=== PATIENT | male | born 1940 | race Hispanic/Latino ===

== ENCOUNTER 2019-02-05 12:36 | Inpatient (IN) | payer MEDICARE ==
[2019-02-05] MEDS ORDERED: HEPARIN 10,000 UNITS/10 ML IV ONE (12:43)
--- NOTE | 2019-02-05 12:51 | Emergency Department Report ---
ED Chest Pain HPI - General Stated Complaint: CHEST PAIN Time Seen by Provider: 02/05/19 12:42 - History of Present Illness Initial Comments: Patient is 78 years old male with no significant past medical history. Patient brought to the emergency room from from his primary care office for chest pain started one week ago but while patient in his primary care physician office his chest pain increased significantly with significant sweating. Patient received aspirin and nitroglycerin by EMS. Patient stated that his chest pain is down to 7 out of 10. EKG showed anterior lateral STEMI. STEMI protocol initiated in the ER. I discussed the patient is Dr. Cavazos. Patient received heparin. Patient immediately transferred to cardiac cath. MD Complaint: chest pain -: minutes(s) Pain Location: left chest Severity: severe Severity scale (0 -10): 10 Quality: heaviness Consistency: constant Improves With: nothing Worsens With: nothing - Related Data Allergies Allergy/AdvReac Type Severity Reaction Status Date / Time No Known Allergies Allergy Unverified 07/21/15 11:59 Heart Score - HEART Score History: Highly suspicious EKG: Significant ST-depression Age: > 65 Risk factors: 1-2 risk factors Troponin: < normal limit HEART Score: 7 - Critical Actions Critical Actions: >7 pts:50-65% risk of adverse cardiac event. Early invasive measures ED Review of Systems ROS: Stated complaint: CHEST PAIN Other details as noted in HPI Comment: All other systems reviewed and negative Constitutional: denies: chills, fever Respiratory: denies: cough, orthopnea, shortness of breath, SOB with exertion, SOB at rest, wheezing Cardiovascular: chest pain. denies: palpitations Gastrointestinal: denies: abdominal pain, nausea Musculoskeletal: denies: back pain Neurological: denies: headache, weakness, numbness, paresthesias, confusion, abnormal gait ED Physical Exam - General General appearance: alert, in no apparent distress - Head Head exam: Present: atraumatic, normocephalic, normal inspection - Eye Eye exam: Present: normal appearance - ENT ENT exam: Present: normal exam, normal orophraynx, mucous membranes moist - Neck Neck exam: Present: normal inspection, full ROM. Absent: tenderness, meningismus, lymphadenopathy, thyromegaly - Respiratory Respiratory exam: Present: normal lung sounds bilaterally - Cardiovascular Cardiovascular Exam: Present: regular rate, normal rhythm, normal heart sounds - GI/Abdominal GI/Abdominal exam: Present: soft, normal bowel sounds. Absent: distended, tenderness, guarding, rebound, rigid, organomegaly, mass, bruit, pulsatile mass - Extremities Exam Extremities exam: Present: normal inspection, full ROM, normal capillary refill - Back Exam Back exam: Present: normal inspection, full ROM. Absent: CVA tenderness (R), CVA tenderness (L), muscle spasm, paraspinal tenderness, vertebral tenderness - Neurological Exam Neurological exam: Present: alert, oriented X3, CN II-XII intact - Skin Skin exam: Present: warm, intact, normal color ED Medical Decision Making - EKG Data -: EKG Interpreted by Me EKG shows normal: sinus rhythm Rate: normal - EKG Data 02/05/19 12:54 EKG show STEMI, anterior lateral. - Medical Decision Making Patient is 78 years old male with no significant past medical history. Patient brought to the emergency room from from his primary care office for chest pain started one week ago but while patient in his primary care physician office his chest pain increased significantly with significant sweating. Patient received aspirin and nitroglycerin by EMS. Patient stated that his chest pain is down to 7 out of 10. EKG showed anterior lateral STEMI. STEMI protocol initiated in the ER. I discussed the patient is Dr. Cavazos. Patient received heparin. Patient immediately transferred to cardiac cath. Critical Care Time: Yes Critical care time in (mins) excluding proc time.: 30 Critical care attestation.: If time is entered above; I have spent that time in minutes in the direct care of this critically ill patient, excluding procedure time. ED Disposition Clinical Impression: STEMI (ST elevation myocardial infarction) Disposition: OP ADMIT IP TO THIS HOSP Is pt being admited?: Yes Condition: Stable
[2019-02-05 12:53] LABS: Basophils # (Auto) 0.1 K/mm3 (0.0-0.1); Basophils % (Auto) 0.5 % (0.0-1.8); Eosinophils # (Auto) 0.2 K/mm3 (0.0-0.4); Eosinophils % (Auto) 1.6 % (0.0-4.3); Hematocrit 41.5 % (35.5-45.6); Lymphocytes # (Auto) 2.2 K/mm3 (1.2-5.4); Lymphocytes % (Auto) 23.8 % (13.4-35.0); Mean Corpuscular HGB Conc 34 % (32-34); Mean Corpuscular Volume 90 fl (84-94); Monocytes # (Auto) 0.7 K/mm3 (0.0-0.8); Monocytes % (Auto) 7.5 % (0.0-7.3); Platelet Count 215 K/mm3 (140-440); Red Blood Count 4.64 M/mm3 (3.65-5.03); Red Cell Distribution Width 13.8 % (13.2-15.2)
[2019-02-05] MEDS ORDERED: HEPARIN 10,000 UNITS/10 ML ONE ×2 (12:56→23:00)
[2019-02-05] MEDS ORDERED: HEPARIN/NS 5000 UNIT/500ML(CATH LAB) 1,000 ML IR ONE (12:56)
[2019-02-05] MEDS ORDERED: NITROGLYCERIN SYRINGE 3 ML ONE ×3 (12:57→13:51)
[2019-02-05] MEDS ORDERED: CALAN ONE (12:57)
[2019-02-05] MEDS ORDERED: XYLOCAINE 2% INFILTRATI ONE (12:57)
[2019-02-05] MEDS ORDERED: VERSED ONE (12:57)
[2019-02-05] MEDS ORDERED: HEPARIN/ 0.45% NACL-25,000 UNIT/500 ML 25,000 UNIT/500 ML BAG IV SCH (13:00)
[2019-02-05 13:06] LABS: BUN/Creatinine Ratio 21; Blood Urea Nitrogen 21 mg/dL (9-20); Hemolysis Index 5
[2019-02-05] MEDS ORDERED: NACL 0.9% 500 ML 500 ML ONE (13:08)
[2019-02-05] MEDS: SUBLIMAZE ONE ×2 (13:15→13:30)
[2019-02-05 13:16] LABS: INR 0.93 (0.87-1.13); Partial Thromboplastin Time 24.8 Sec. (24.2-36.6)
[2019-02-05] MEDS ORDERED: AGGRASTAT DRIP (12.5 MG/250 ML) 12,500 MCG/250 ML BAG IV ONE (13:34)
[2019-02-05] MEDS ORDERED: LOPRESSOR IV ONE (13:43)
[2019-02-05] MEDS ORDERED: TRIDIL DRIP 50MG/250ML 50 MG/250 ML BOTTLE ONE (13:52)
[2019-02-05] MEDS ORDERED: TRIDIL DRIP 50MG/250ML 50 MG/250 ML BOTTLE IV SCH (14:29)
[2019-02-05] MEDS ORDERED: PLAVIX ONE (14:34)
[2019-02-05] MEDS ORDERED: ALUM-MAG HYDROX-SIMETH 200-200-20MG/5ML ONE (14:34)
--- NOTE | 2019-02-05 14:40 | Consultation ---
History of Present Illness Consult date: 02/05/19 Consult reason: chest pain History of present illness: 78-year-old man with no prior cardiac history, presented to the emergency room for chest pain and ECG consistent with an acute ST elevation anterolateral wall myocardial infarction. Emergency cardiac catheterization protocol was activated. We found, heavily calcified, complete occlusion of the proximal LAD at the bifurcation of the large diagonal branch. Angioplasty was performed succ essfully, RODOLFO-3 flow was restored to LAD diagonal branch, serial 2.75-3.0 mm drug-eluting stents were implanted to the proximal and mid LAD. The patient is admitted to the CCU for post-DE and stabilization. Past History Past Medical History: No medical history Medications and Allergies Allergies Allergy/AdvReac Type Severity Reaction Status Date / Time No Known Allergies Allergy Verified 02/05/19 12:49 Review of Systems Cardiovascular: chest pain, shortness of breath, no orthopnea, no palpitations, no rapid/irregular heart beat, no edema, no syncope, no lightheadedness Physical Examination Vital Signs Temp Pulse Resp BP Pulse Ox 97.8 F 62 17 128/68 98 02/05/19 12:36 02/05/19 12:36 02/05/19 12:36 02/05/19 12:36 02/05/19 12:36 General appearance: no acute distress HEENT: Positive: PERRL Neck: Positive: neck supple Cardiac: Positive: Reg Rate and Rhythm Lungs: Positive: clear to auscultation Neuro: Positive: Grossly Intact Abdomen: Positive: Soft Male genitourinary: Positive: deferred Skin: Positive: Clear Extremities: Absent: edema Results 02/05/19 12:48 02/05/19 12:48 Coagulation 02/05/19 Range/Units 12:48 PT 13.0 (12.2-14.9) Sec. INR 0.93 (0.87-1.13) APTT 24.8 (24.2-36.6) Sec. CBC 02/05/19 Range/Units 12:48 WBC 9.4 (4.5-11.0) K/mm3 RBC 4.64 (3.65-5.03) M/mm3 Hgb 14.0 (11.8-15.2) gm/dl Hct 41.5 (35.5-45.6) % Plt Count 215 (140-440) K/mm3 Lymph # 2.2 (1.2-5.4) K/mm3 [place] # 0.7 (0.0-0.8) K/mm3 Eos # 0.2 (0.0-0.4) K/mm3 Baso # 0.1 (0.0-0.1) K/mm3 Comprehensive Metabolic Panel 02/05/19 Range/Units 12:48 Sodium 144 (137-145) mmol/L Potassium 4.3 (3.6-5.0) mmol/L Chloride 105.8 (98-107) mmol/L Carbon Dioxide 26 (22-30) mmol/L BUN 21 H (9-20) mg/dL Creatinine 1.0 (0.8-1.5) mg/dL Glucose 157 H (75-100) mg/dL Calcium 9.0 (8.4-10.2) mg/dL EKG interpretations - Telemetry EKG Rhythm: Sinus Rhythm (with anterolateral wall ST elevation myocardial in farction) Assessment and Plan - Patient Problems (1) STEMI (ST elevation myocardial infarction) Current Visit: Yes Status: Acute Plan to address problem: Status post successful primary angioplasty and stenting of the LAD and diagonal. Echocardiogram will be ordered for left ventricular function and valvular function assessment.
--- NOTE | 2019-02-05 14:56 | Cardiac Catherization Report ---
CARDIAC CATHETERIZATION AND CORONARY ANGIOPLASTY REASON FOR PROCEDURE: The patient is a 78-year-old man with no prior cardiac history, presented to the Emergency Room with chest pain. ECG was consistent with an acute ST elevation anterior wall myocardial infarction. Emergency cardiac catheterization was activated. PROCEDURES: 1. Left heart catheterization. 2. Selective left and right coronary angiography. 3. Angioplasty and coronary stenting of the LAD and diagonal branch. 4. Sedation time start 1315 hours, end 1356 hours. DESCRIPTION OF PROCEDURE: The patient was prepped and draped in a sterile fashion under emergency protocol. Right femoral artery was entered using the Seldinger technique followed by placement of a 6-Citizen [place] sheath. Selective left and right coronary angiography was performed using #4 right and left Dodie catheters. The angiograms were reviewed. CORONARY ANGIOGRAPHY: The left main was short, essentially there was separate LAD and circumflex ostia. The left anterior descending artery was completely occluded in its proximal segment. This was a heavily calcified, bifurcation lesion, with complete occlusion and RODOLFO 0-1 flow down the LAD and also a large diagonal branch that originated from the lesional segment. The circumflex artery and its obtuse marginal branches contained mild irregularities. The right coronary artery was dominant and similarly contained mild irregularities. CORONARY ANGIOPLASTY: After review of the angiograms, we commenced with ad hoc primary angioplasty of the LAD. We selected a #3.5 XB LAD guiding catheter and advanced to the left anterior descending artery ostium. A 0.014-inch [employer] 50 guidewire was selectively directed into the diagonal branch. Another 0.014-inch wire was directed into the LAD main trunk. Balloon angioplasty was then performed to the ostium of the diagonal. Following this, we then performed predilatation balloon angioplasty of the LAD. Serial, 2.75-3.0 mm drug-eluting stents were then deployed to the LAD covering the entire long lesional segment extending into the mid vessel. Following stenting, there was worship of RODOLFO 3 flow down the main LAD trunk. We then retrieved the diagonal branch wire and reinserted it through the stent struts, following which the 3.0 mm balloon catheter was then used to dilate the ostium of the diagonal branch through the stent struts. The wires were then removed, catheters were removed. Post-intervention angiograms revealed an excellent angiographic result with 0 residual stenosis in the LAD, worship of RODOLFO 3 flow to both LAD and diagonal branches. There was mild residual ostial narrowing of the diagonal branch. The patient tolerated the procedure well and there were no complications. The catheters were removed, sheath removed, and hemostasis achieved using an Angio-Seal device. He was returned to the postprocedure unit in stable condition. CONCLUSION: 1. Acute anterolateral wall ST elevation myocardial infarction. 2. Emergency cardiac catheterization. 3. A 100% occlusion of the proximal LAD at the bifurcation of a large diagonal branch, it is an infarct-related lesion. 4. Successful angioplasty and stenting of the LAD and diagonal, excellent angiographic results following intervention and worship of RODOLFO 3 flow. The patient will be admitted to the CCU, an echocardiogram will be done for left ventricular function and valvular function assessment. [facility]# [id number] MERLIN/PREETI
[2019-02-05] MEDS ORDERED: NACL 0.9% 1000 ML 1,000 ML IV SCH (15:00)
[2019-02-05] MEDS ORDERED: AGGRASTAT DRIP (12.5 MG/250 ML) 12,500 MCG/250 ML BAG IV SCH (15:00)
[2019-02-05] MEDS: ZESTRIL PO SCH (16:06)
[2019-02-05] MEDS: LOPRESSOR PO SCH ×2 (16:06→21:39)
[2019-02-05 19:59] LABS: Chol/HDL Ratio 2.44 %
[2019-02-06] MEDS ORDERED: MORPHINE IV ONE (01:07)
--- NOTE | 2019-02-06 03:00 | XRay Report ---
PROCEDURE: XR CHEST 1V AP TECHNIQUE: Chest radiograph single view. HISTORY: post pci COMPARISONS: None . FINDINGS: Heart: Normal. Mediastinum/Vessels: Normal. Lungs/Pleural space: Slight vascular congestion with increased markings in the right upper and left lower lungs. Early infiltrative process is not excluded. No evidence of effusion or pneumothorax. Bony thorax: No acute osseous abnormality. Life support devices: None. IMPRESSION: Slight vascular congestion with increased markings in the right upper and left lower kacey gs. Slight atelectasis versus early infiltrative process are within the differential. No effusion or pneumothorax. This document is electronically signed by Kizzy Herrera DO., February 06 2019 02:57:59 AM ET
[2019-02-06 05:16] LABS: Basophils % (Auto) 0.2 % (0.0-1.8); Eosinophils % (Auto) 0.1 % (0.0-4.3); Hematocrit 37.2 % (35.5-45.6); Hemoglobin 12.5 gm/dl (11.8-15.2); Lymphocytes # (Auto) 0.8 K/mm3 (1.2-5.4); Mean Corpuscular HGB Conc 34 % (32-34); Mean Corpuscular Volume 89 fl (84-94); Monocytes # (Auto) 0.9 K/mm3 (0.0-0.8); Monocytes % (Auto) 7.6 % (0.0-7.3); Platelet Count 164 K/mm3 (140-440); Red Blood Count 4.17 M/mm3 (3.65-5.03); Red Cell Distribution Width 13.7 % (13.2-15.2)
[2019-02-06 05:42] LABS: Creatine Kinase MB 214.2 ng/mL (0.0-4.0)
[2019-02-06 05:43] LABS: BUN/Creatinine Ratio 24; Blood Urea Nitrogen 19 mg/dL (9-20); Calcium 8.4 mg/dL (8.4-10.2); Hemolysis Index 4
--- NOTE | 2019-02-06 06:04 | Event Note ---
Date: 02/05/19 See H/p in reports STEMI S/p PCI and LAD stent
[2019-02-06] MEDS ORDERED: NON-FORMULARY (Amlodipine 5 MG) PO SCH (06:15)
--- NOTE | 2019-02-06 07:01 | History and Physical Report ---
CHIEF COMPLAINT: Left-sided chest pain since a.m. HISTORY OF PRESENT ILLNESS: A 70-year-old male comes in to the Emergency Room for acute chest pain since a.m. The patient was diaphoretic. The patient went to his primary care office from where he was sent. The chest pain has been ongoing for last 1 week, but more so since this morning. Because of the increased sweating and EKG changes, the patient was sent from the primary care office. Chest pain was 10/10 at the time of admission to the ER and later on went down to out of 7/10. EKG showed anterolateral STEMI changes. The patient was taken directly to the medical lab tech instructor for cardiac catheterization and possible stenting. In the medical lab tech instructor, the patient had PCI and LAD stent. LAD was totally occluded. The patient started on Aggrastat. PAST MEDICAL HISTORY: Significant for hypertension. PAST SURGICAL HISTORY: None. SOCIAL HISTORY: Does not smoke. No alcohol, no recreational drugs. FAMILY HISTORY: Hypertension. PHYSICAL EXAMINATION: GENERAL: Elderly male, cooperative during examination. VITAL SIGNS: Blood pressure is 155/87, temperature is 98.6, heart rate is 62, respiratory rate is 20. HEENT: Unremarkable. Pupils equal and reactive. NECK: Supple, no lymphadenopathy, no thyromegaly. LUNGS: Clear to auscultation and percussion. Good air entry. CARDIOVASCULAR: S1, S2 heard. No gallop, no murmur, no rub. Apical impulse in left fifth intercostal space and midclavicular line. ABDOMEN: Soft and benign. No hepatosplenomegaly. No guarding, no rigidity. Hernial orifices are normal. EXTREMITIES: Good pedal pulses. No pedal edema. CENTRAL NERVOUS SYSTEM: Alert and oriented x 4, nonfocal exam. LABORATORY DATA: Significant for white count of 9400, H and H is 14 and 41.5, platelet count is 215,000. Electrolytes are normal. BUN and creatinine is 21 and 1.0. The first troponin is less than 0.010, second troponin is 20.37, very high. Cholesterol is 149, LDL is 82, HDL is 61. Cholesterol ratio is 2.44. EKG shows ST elevations in the anterior and lateral leads. Chest x-ray, no acute findings. ASSESSMENT AND PLAN: 1. ST elevation myocardial infarction. The patient had a catheterization and LAD stent. The patient on Aggrastat. The patient was given IV heparin bolus. Continue Aggrastat. Cardiology is following the patient. 2. Hypertension. Continue amlodipine. Beta blockers to be added in the form of Coreg. VIOLET/ARBs are also to be added in low dose. 3. Deep venous thrombosis prophylaxis. The patient already on Aggrastat. Add Lovenox as necessary. In summary, the patient had STEMI, hypertension. CRITICAL CARE TIME: 32 minutes. JOB# [id number] MIKE/PREETI TORRES
--- NOTE | 2019-02-06 07:51 | Progress Note ---
Assessment and Plan Assessment and plan: Patient is a 78 man without known chronic medical problems who presented to [facility] ED from PCP office after experiencing chest pains. EKG showed anterior lateral STEMI and he was sent directly for Cardiac catherization which showed heavily calcified, complete occlusion of the proximal LAD at the bifurcation of the large diagonal branch. Angioplasty was performed successfully, RODOLFO-3 flow was restored to LAD diagonal branch, serial 2.75-3.0 mm drug-eluting stents were implanted to the proximal and mid LAD. The patient is admitted to the CCU for post-SC and stabilization. * pCXR Impression: Slight vascular congestion with increased marking in the right upper and left lower lungs, slight atelectasis versus early inflitrative process are within the differential. No effusion or pneumothorax STEMI s/p Drug eluting cardiac stents to proximal and mid LAD: continue medical management, get ECHO, Cardiology following Acute suspected diastolic dysfunction as above: ECHO Accelerated hypertension: continue to monitor, added Lopressor Leukocytosis, WBC increased from 9.4 to 11.5: get blood culture and initiated empiric IV rocephin Hyperglycemia, mild: check A1c DVT prophylaxis reviewed Continue ICU care, possibly transfer out soon CCT 32 minutes History Interval history: Patient was seen and examined. Follow-up on current diagnosis of STEMI. No overnight events reported to me. Patient denies any chest pain, shortness breath, nausea/vomiting or severe headaches. Imaging, nursing note, chart, labs and old chart reviewed. Discussed with patient. Hospitalist Physical - Physical exam Narrative exam: Gen: WDWN, NAD, Awake, Alert, Orientated HEENT: NCAT, EOMI, PERRL, OP Clear Neck: supple, no adenopathy, no thyromegaly, no JVD CVS/Heart: Regular bradycardia, normal S1S2, pulses present bilaterally Chest/Lungs: diminished bs, bilateral, Symmetrical chest expansion, good air entry bilaterally GI/Abdomen: soft, NTND, good bowel sounds, no guarding or rebound /Bladder: no suprapubic tenderness, no CVA or paraspinal tenderness Extermity/Skin: no c/c/e, no obvious rash MSK: FROM x 4 Neuro: CN 2-12 grossly intact, no new focal deficits Psych: calm - Constitutional Vitals: Temp Pulse Resp BP Pulse Ox 99.4 F 58 L 18 171/81 97 02/06/19 04:00 02/06/19 06:00 02/06/19 06:00 02/06/19 06:00 02/06/19 06:00 General appearance: Present: no acute distress Results - Labs CBC & Chem 7: 02/06/19 04:58 02/06/19 04:58 Labs: Laboratory Last Values WBC 11.5 K/mm3 (4.5-11.0) H 02/06/19 04:58 RBC 4.17 M/mm3 (3.65-5.03) 02/06/19 04:58 Hgb 12.5 gm/dl (11.8-15.2) 02/06/19 04:58 Hct 37.2 % (35.5-45.6) 02/06/19 04:58 MCV 89 fl (84-94) 02/06/19 04:58 MCH 30 pg (28-32) 02/06/19 04:58 MCHC 34 % (32-34) 02/06/19 04:58 RDW 13.7 % (13.2-15.2) 02/06/19 04:58 Plt Count 164 K/mm3 (140-440) 02/06/19 04:58 Lymph % (Auto) 7.0 % (13.4-35.0) L 02/06/19 04:58 [place] % (Auto) 7.6 % (0.0-7.3) H 02/06/19 04:58 Eos % (Auto) 0.1 % (0.0-4.3) 02/06/19 04:58 Baso % (Auto) 0.2 % (0.0-1.8) 02/06/19 04:58 Lymph # 0.8 K/mm3 (1.2-5.4) L 02/06/19 04:58 [place] # 0.9 K/mm3 (0.0-0.8) H 02/06/19 04:58 Eos # 0.0 K/mm3 (0.0-0.4) 02/06/19 04:58 Baso # 0.0 K/mm3 (0.0-0.1) 02/06/19 04:58 Seg Neutrophils % 85.1 % (40.0-70.0) H 02/06/19 04:58 Seg Neutrophils # 9.8 K/mm3 (1.8-7.7) H 02/06/19 04:58 PT 13.0 Sec. (12.2-14.9) 02/05/19 12:48 INR 0.93 (0.87-1.13) 02/05/19 12:48 APTT 24.8 Sec. (24.2-36.6) 02/05/19 12:48 Sodium 141 mmol/L (137-145) 02/06/19 04:58 Potassium 4.6 mmol/L (3.6-5.0) 02/06/19 04:58 Chloride 105.3 mmol/L (98-107) 02/06/19 04:58 Carbon Dioxide 24 mmol/L (22-30) 02/06/19 04:58 16 mmol/L 02/06/19 04:58 BUN 19 mg/dL (9-20) 02/06/19 04:58 0.8 mg/dL (0.8-1.5) 02/06/19 04:58 Estimated GFR > 60 ml/min 02/06/19 04:58 24 % 02/06/19 04:58 Glucose 178 mg/dL (75-100) H 02/06/19 04:58 POC Glucose 131 (70-105) H 02/05/19 18:35 Calcium 8.4 mg/dL (8.4-10.2) 02/06/19 04:58 2801 units/L (55-170) H 02/06/19 04:58 CK-MB (CK-2) 214.2 ng/mL (0.0-4.0) H 02/06/19 04:58 CK-MB (CK-2) Rel Index 7.6 (0-4) H 02/06/19 04:58 9.720 ng/mL (0.00-0.029) H* D 02/06/19 04:58 Triglycerides 55 mg/dL (2-149) 02/05/19 18:22 Cholesterol 149 mg/dL (50-199) 02/05/19 18:22 82 mg/dL (50-130) 02/05/19 18:22 61 mg/dL (40-59) H 02/05/19 18:22 2.44 % 02/05/19 18:22 Active Medications - Current Medications Current Medications: Generic Name Dose Route Start Last Admin Trade Name Frankoq PRN Reason Stop Dose Admin Amlodipine Besylate 5 mg 02/06/19 10:00 Norvasc PO QDAY CARSON Aspirin 325 mg 02/06/19 10:00 Ecotrin PO QDAY CARSON Atorvastatin Calcium 40 mg 02/05/19 22:00 02/05/19 21:39 Lipitor PO 40 mg QHS CARSON Administration Clopidogrel Bisulfate 75 mg 02/06/19 10:00 Plavix PO QDAY CARSON Nitroglycerin/Dextrose 50 mg in 250 mls @ 6 mls/hr 02/05/19 14:29 Tridil Drip 50mg/250ml IV TITR CARSON Protocol 20 MCG/MIN Tirofiban/Sodium Chloride 12,500 mcg in 250 mls @ 10 mls/hr 02/05/19 15:00 02/06/19 04:15 Aggrastat Drip (12.5 Mg/250 Ml) IV 02/06/19 08:59 10 mls/hr DIRECT CARSON Administration Protocol Per Protocol Lisinopril 5 mg 02/05/19 15:00 02/05/19 16:06 Zestril PO 5 mg QDAY CARSON Administration Metoprolol Tartrate 50 mg 02/05/19 15:00 02/05/19 21:39 Lopressor PO 50 mg BID CARSON Administration
[2019-02-06] MEDS: ROCEPHIN/NS 1 GM/50 ML 1 GM/50 ML BAG IV SCH (09:38)
[2019-02-06] MEDS: ZITHROMAX 500 MG in NACL 0.9% 250ML 250 ML IV SCH (09:39)
[2019-02-06] MEDS: ECOTRIN PO SCH (09:49)
[2019-02-06] MEDS: ZESTRIL PO SCH (09:49)
[2019-02-06] MEDS: PLAVIX PO SCH (09:49)
[2019-02-06] MEDS: LOPRESSOR PO SCH ×2 (09:50→22:04)
[2019-02-06] MEDS: NORVASC PO SCH (09:50)
--- NOTE | 2019-02-06 09:56 | Progress Note ---
Assessment and Plan Anterior STEMI s/p PCI to LAD and diag with SOFIA 02/05/[address] segment elevation on ECG Patient has been having chest pain on and off for 1 month Systemic Hypertension Right groin hematoma, small with preserved distal pulses Recommendations: Discontinue IV nitroglycerin Add Imdur and aldactone May transfer to [facility] Echocardiogram Cardiac rehab as outpatient Subjective Date of service: 02/06/19 Principal diagnosis: STEMI Interval history: Patient denies chest pain or shortness of breath this morning Objective Vital Signs Temp Pulse Pulse Resp BP BP Pulse Ox 02/06/19 09:50 66 154/77 02/06/19 09:49 68 154/77 02/06/19 08:31 65 18 160/77 96 02/06/19 08:00 54 L 5 L 128/89 95 02/06/19 07:30 59 L 23 170/88 94 02/06/19 07:00 56 L 21 166/83 98 02/06/19 06:31 65 12 143/69 96 02/06/19 06:00 58 L 18 171/81 97 02/06/19 05:30 55 L 22 162/87 97 02/06/19 05:00 66 22 161/85 96 02/06/19 04:30 63 22 160/89 98 02/06/19 04:24 62 21 95 02/06/19 04:00 99.4 F 62 21 155/87 95 02/06/19 03:30 57 L 15 161/88 96 02/06/19 03:00 59 L 18 162/81 02/06/19 02:30 65 22 150/86 97 02/06/19 02:00 62 24 157/88 95 02/06/19 01:30 61 21 148/83 98 02/06/19 01:00 59 L 21 153/82 97 02/06/19 00:45 67 24 96 02/06/19 00:30 62 23 129/65 02/06/19 00:00 67 24 140/89 02/05/19 23:30 66 22 139/91 02/05/19 23:21 98.8 F 02/05/19 23:15 63 22 145/88 02/05/19 23:00 65 26 H 145/88 94 02/05/19 22:30 70 24 145/82 02/05/19 22:01 64 24 93 02/05/19 22:00 72 02/05/19 21:39 66 128/83 02/05/19 21:31 59 L 25 H 128/83 94 02/05/19 21:01 68 25 H 117/84 95 02/05/19 21:00 77 15 93 02/05/19 20:31 62 24 120/74 95 02/05/19 20:00 97.8 F 77 15 150/88 93 02/05/19 19:30 70 14 156/83 02/05/19 19:21 73 21 150/81 94 02/05/19 19:11 64 16 138/91 91 02/05/19 19:00 76 20 138/91 94 02/05/19 18:51 79 16 147/89 92 02/05/19 18:41 75 16 149/89 94 02/05/19 18:30 80 18 149/89 94 02/05/19 18:21 73 20 157/131 92 02/05/19 18:11 74 21 151/85 94 02/05/19 18:01 75 19 151/85 96 02/05/19 17:51 80 23 150/95 90 02/05/19 17:42 66 22 94 02/05/19 17:41 74 26 H 155/89 93 02/05/19 17:30 75 23 155/89 93 02/05/19 17:21 70 16 150/90 94 02/05/19 17:11 79 21 144/86 85 02/05/19 17:00 76 16 144/86 93 02/05/19 16:51 84 19 162/88 92 02/05/19 16:41 74 18 134/78 95 02/05/19 16:30 73 17 134/78 92 02/05/19 16:21 77 23 142/81 94 02/05/19 16:11 72 19 129/88 94 02/05/19 16:06 70 151/84 02/05/19 16:00 67 20 151/84 94 02/05/19 15:51 75 22 138/84 92 02/05/19 15:41 69 20 94 02/05/19 15:30 74 14 147/82 92 02/05/19 15:26 62 17 93 02/05/19 12:50 128/68 97 02/05/19 12:43 99 02/05/19 12:40 97 06/06/19 12:39 98 02/05/19 12:36 97.8 F 62 17 128/68 98 - Physical Examination HEENT: Positive: PERRL Neck: Positive: neck supple Cardiac: Positive: Reg Rate and Rhythm Lungs: Positive: Normal Exam Neuro: Positive: Grossly Intact Abdomen: Positive: Soft Skin: Positive: Clear Extremities: Absent: edema - Labs and Meds Cardiac Enzymes 02/06/19 Range/Units 04:58 CK-MB (CK-2) 214.2 H (0.0-4.0) ng/mL Coagulation 02/05/19 Range/Units 12:48 PT 13.0 (12.2-14.9) Sec. INR 0.93 (0.87-1.13) APTT 24.8 (24.2-36.6) Sec. Lipids 02/05/19 Range/Units 18:22 Triglycerides 55 (2-149) mg/dL Cholesterol 149 (50-199) mg/dL HDL Cholesterol 61 H (40-59) mg/dL Cholesterol/HDL Ratio 2.44 % CBC 02/05/19 02/06/19 Range/Units 12:48 04:58 WBC 9.4 11.5 H (4.5-11.0) K/mm3 RBC 4.64 4.17 (3.65-5.03) M/mm3 Hgb 14.0 12.5 (11.8-15.2) gm/dl Hct 41.5 37.2 (35.5-45.6) % Plt Count 215 164 (140-440) K/mm3 Lymph # 2.2 0.8 L (1.2-5.4) K/mm3 [place] # 0.7 0.9 H (0.0-0.8) K/mm3 Eos # 0.2 0.0 (0.0-0.4) K/mm3 Baso # 0.1 0.0 (0.0-0.1) K/mm3 Comprehensive Metabolic Panel 02/05/19 02/06/19 Range/Units 12:48 04:58 Sodium 144 141 (137-145) mmol/L Potassium 4.3 4.6 (3.6-5.0) mmol/L Chloride 105.8 105.3 (98-107) mmol/L Carbon Dioxide 26 24 (22-30) mmol/L BUN 21 H 19 (9-20) mg/dL Creatinine 1.0 0.8 (0.8-1.5) mg/dL Glucose 157 H 178 H (75-100) mg/dL Calcium 9.0 8.4 (8.4-10.2) mg/dL
--- NOTE | 2019-02-06 10:57 | Consultation ---
History of Present Illness - Reason for Consult Consult date: 02/06/19 STEMI Requesting physician: KIANNA HEARN - History of Present Illness 78 y/o male admitted with chest pain. Found to have STEMI and taken to [facility] for intervention. Successful. Admitted to the ICU post cath for follow up. Developed small hematoma while on aggrastat which is now off. CHest pain free. Nitro has been stopped and now patient is on ASA, statin and BB as well as VIOLET Past History Past Medical History: hypertension Social history: no significant social history Family history: no significant family history Medications and Allergies Allergies Allergy/AdvReac Type Severity Reaction Status Date / Time No Known Allergies Allergy Verified 02/05/19 12:49 Home Medications Medication Instructions Recorded Confirmed Last Taken Type amLODIPine 5 mg PO ONCE 02/05/19 02/05/19 Unknown History Active Meds: Active Medications Amlodipine Besylate (Norvasc) 5 mg PO QDAY [facility] Last Admin: 02/06/19 09:50 Dose: 5 mg Documented by: Aspirin (Ecotrin) 325 mg PO QDAY [facility] Last Admin: 02/06/19 09:49 Dose: 325 mg Documented by: Atorvastatin Calcium (Lipitor) 40 mg PO QHS [facility] Last Admin: 02/05/19 21:39 Dose: 40 mg Documented by: Clopidogrel Bisulfate (Plavix) 75 mg PO QDAY [facility] Last Admin: 02/06/19 09:49 Dose: 75 mg Documented by: Ceftriaxone Sodium (Rocephin/Ns 1 Gm/50 Ml) 1 gm in 50 mls @ 100 mls/hr IV Q24HR [facility]; Protocol Last Admin: 02/06/19 09:38 Dose: 100 mls/hr Documented by: Azithromycin 500 mg/ Sodium (Chloride) 250 mls @ 250 mls/hr IV Q24HR [facility] Last Admin: 02/06/19 09:39 Dose: 250 mls/hr Documented by: Isosorbide Mononitrate (Imdur) 30 mg PO QDAY [facility] Lisinopril (Zestril) 5 mg PO QDAY [facility] Last Admin: 02/06/19 09:49 Dose: 5 mg Documented by: Metoprolol Tartrate (Lopressor) 50 mg PO BID [facility] Last Admin: 02/06/19 09:50 Dose: 50 mg Documented by: Spironolactone (Aldactone) 25 mg PO QDAY [facility] Review of Systems All systems: negative Exam - Constitutional Vitals: Temp Pulse Resp BP Pulse Ox 96.2 F L 69 28 H 146/101 98 02/06/19 08:05 02/06/19 10:31 02/06/19 10:31 02/06/19 10:31 02/06/19 10:31 General appearance: Present: no acute distress, well-nourished - EENT Eyes: Present: PERRL, EOM intact ENT: hearing intact, clear oral mucosa - Neck Neck: Present: supple - Respiratory Respiratory effort: normal Respiratory: bilateral: CTA - Cardiovascular Rhythm: regular Heart Sounds: Present: S1 & S2 - Extremities Extremities: no ischemia, pulses intact, pulses symmetrical - Abdominal General gastrointestinal: Present: soft, non-tender, normal bowel sounds Male genitourinary: Present: deferred - Rectal Rectal Exam: deferred - Integumentary Integumentary: Present: clear, warm, dry - Musculoskeletal Musculoskeletal: strength equal bilaterally Results - Labs CBC & Chem 7: 02/06/19 04:58 02/06/19 04:58 Labs: Abnormal lab results 02/05/19 02/05/19 02/05/19 Range/Units 12:48 12:48 13:28 WBC (4.5-11.0) K/mm3 Lymph % (Auto) (13.4-35.0) % Green % (Auto) 7.5 H (0.0-7.3) % Lymph # (1.2-5.4) K/mm3 Green # (0.0-0.8) K/mm3 Seg Neutrophils % (40.0-70.0) % Seg Neutrophils # (1.8-7.7) K/mm3 Activated Clotting Time 164 H (74-137) BUN 21 H (9-20) mg/dL Glucose 157 H (75-100) mg/dL POC Glucose (70-105) Total Creatine Kinase (55-170) units/L CK-MB (CK-2) (0.0-4.0) ng/mL CK-MB (CK-2) Rel Index (0-4) Troponin T (0.00-0.029) ng/mL HDL Cholesterol (40-59) mg/dL 02/05/19 02/05/19 02/05/19 Range/Units 14:02 18:22 18:35 WBC (4.5-11.0) K/mm3 Lymph % (Auto) (13.4-35.0) % Green % (Auto) (0.0-7.3) % Lymph # (1.2-5.4) K/mm3 Green # (0.0-0.8) K/mm3 Seg Neutrophils % (40.0-70.0) % Seg Neutrophils # (1.8-7.7) K/mm3 Activated Clotting Time 235 H (74-137) BUN (9-20) mg/dL Glucose (75-100) mg/dL POC Glucose 131 H (70-105) Total Creatine Kinase (55-170) units/L CK-MB (CK-2) (0.0-4.0) ng/mL CK-MB (CK-2) Rel Index (0-4) Troponin T 17.370 H* D (0.00-0.029) ng/mL HDL Cholesterol 61 H (40-59) mg/dL 02/05/19 02/06/19 02/06/19 Range/Units 19:58 04:58 04:58 WBC 11.5 H (4.5-11.0) K/mm3 Lymph % (Auto) 7.0 L (13.4-35.0) % Green % (Auto) 7.6 H (0.0-7.3) % Lymph # 0.8 L (1.2-5.4) K/mm3 Green # 0.9 H (0.0-0.8) K/mm3 Seg Neutrophils % 85.1 H (40.0-70.0) % Seg Neutrophils # 9.8 H (1.8-7.7) K/mm3 Activated Clotting Time (74-137) BUN (9-20) mg/dL Glucose 178 H (75-100) mg/dL POC Glucose (70-105) Total Creatine Kinase 2801 H (55-170) units/L CK-MB (CK-2) 214.2 H (0.0-4.0) ng/mL CK-MB (CK-2) Rel Index 7.6 H (0-4) Troponin T 20.370 H* 9.720 H* D (0.00-0.029) ng/mL HDL Cholesterol (40-59) mg/dL - Imaging and Cardiology Chest x-ray: image reviewed Assessment and Plan 78 y/o male with STEMI, status post PCI 1. ASA, statin BB And VIOLET per cards 2. Cardiac rehab 3. Cardiac monitoring 4. AGree with transfer to tele
[2019-02-06] MEDS: IMDUR PO SCH (11:14)
[2019-02-06] MEDS: ALDACTONE PO SCH (11:14)
[2019-02-07 05:35] LABS: Hematocrit 33.7 % (35.5-45.6); Hemoglobin 11.5 gm/dl (11.8-15.2); Mean Corpuscular HGB Conc 34 % (32-34); Mean Corpuscular Volume 89 fl (84-94); Platelet Count 122 K/mm3 (140-440); Red Cell Distribution Width 13.8 % (13.2-15.2)
[2019-02-07 07:28] LABS: Blood Urea Nitrogen TNR mg/dL (9-20)
[2019-02-07 07:29] LABS: BUN/Creatinine Ratio TNR; Calcium TNR mg/dL (8.4-10.2); Hemolysis Index TNR
[2019-02-07 08:54] LABS: BUN/Creatinine Ratio 20; Blood Urea Nitrogen 16 mg/dL (9-20); Calcium 7.9 mg/dL (8.4-10.2); Hemolysis Index 2
[2019-02-07] MEDS: ZESTRIL PO SCH (10:09)
[2019-02-07] MEDS: LOPRESSOR PO SCH (10:09)
[2019-02-07] MEDS: ALDACTONE PO SCH (10:09)
[2019-02-07] MEDS: NORVASC PO SCH (10:09)
[2019-02-07] MEDS: PLAVIX PO SCH (10:09)
[2019-02-07] MEDS: ECOTRIN PO SCH (10:09)
[2019-02-07] MEDS: IMDUR PO SCH (10:10)
[2019-02-07] MEDS: ZITHROMAX 500 MG in NACL 0.9% 250ML 250 ML IV SCH (10:26)
[2019-02-07] MEDS: ROCEPHIN/NS 1 GM/50 ML 1 GM/50 ML BAG IV SCH (10:26)
--- NOTE | 2019-02-07 12:25 | Discharge Summary ---
Providers - Providers Date of Admission: 02/05/19 13:42 Date of discharge: 02/07/19 Attending physician: KIANNA HEARN 02/05/19 Consult to Cardiac Rehabilitation [CONS] Routine Reason For Exam: post pci 02/05/19 17:41 Consult to Physician [CONS] Routine Comment: Consulting Provider: MICHA SANDY Physician Instructions: Reason For Exam: STEMI 02/06/19 15:51 Consult to Dietitian/Nutrition [CONS] Routine Physician Instructions: Reason For Exam: Diet Education Reason for Consult: Diet education [facility] Condition: Stable Hospital course: Patient is a 78 man without known chronic medical problems who presented to [facility] ED from PCP office after experiencing chest pains. EKG showed anterior lateral STEMI and he was sent directly for Cardiac catherization which showed heavily calcified, complete occlusion of the proximal LAD at the bifurcation of the large diagonal branch. Angioplasty was performed successfully, RODOLFO-3 flow was restored to LAD diagonal branch, serial 2.75-3.0 mm drug-eluting stents were implanted to the proximal and mid LAD. The patient is admitted to the CCU for post-NV and stabilization. * pCXR Impression: Slight vascular congestion with increased marking in the right upper and left lower lungs, slight atelectasis versus early inflitrative process are within the differential. No effusion or pneumothorax STEMI s/p Drug eluting cardiac stents to proximal and mid LAD: continue medical management, ECHO per Cardiology Acute suspected diastolic dysfunction as above: ECHO per Cardiology Accelerated hypertension: continue to monitor, added Lopressor Leukocytosis, WBC increased from 9.4 to 11.5, reactive Hyperglycemia, mild, reactive/stress related: A1c 5.1 Disposition: DC-01 TO HOME OR SELFCARE Time spent for discharge: 35 minutes Core Measure Documentation - Palliative Care Palliative Care/ Comfort Measures: Not Applicable - Core Measures Any of the following diagnoses?: acute NV - VTE Discharge Requirements Deep Vein Thrombosis/Pulmonary Embolism Present on Admission: No Has pt received <5 days of overlap therapy or INR<2.0: No Anticoagulant overlap therapy prescribed at discharge: No Contraindication No Overlap Therapy order at DC: Not Indicated - Acute NV Discharge Requirements Aspirin at discharge: Yes VIOLET/ARB for LVSD if EF <40%: Yes Beta angeline at discharge: Yes Statin for LDL = or >100 mg/dl on DC: Yes - Heart Failure Discharge Requirements VIOLET/ARB for LVSD if EF <40%: Yes Beta angeline at discharge: Yes Exam - Physical Exam Narrative exam: Gen: thin frail, NAD, Awake, Alert, Orientated x 3 HEENT: NCAT, EOMI, PERRL, OP Clear Neck: supple, no adenopathy, no thyromegaly, no JVD CVS/Heart: RRR, normal S1S2, pulses present bilaterally Chest/Lungs: cta b, bilateral, Symmetrical chest expansion, good air entry bilaterally GI/Abdomen: soft, NTND, good bowel sounds, no guarding or rebound /Bladder: no suprapubic tenderness, no CVA or paraspinal tenderness Extermity/Skin: no c/c/e, no obvious rash MSK: FROM x 4 Neuro: CN 2-12 grossly intact, no new focal deficits Psych: calm - Constitutional Vitals: Temp Pulse Resp BP Pulse Ox 98.0 F 77 16 126/73 96 02/07/19 08:21 02/07/19 08:21 02/07/19 08:21 02/07/19 08:21 02/07/19 08:21 Plan Activity: other (no strenous activity including sex unless cleared by Cardiology) Diet: low salt Special Instructions: record daily BP diary [facility] [place] [Primary Care Provider] - 3-5 Days MARY NOBLES MD [Staff Physician] - 7 Days Prescriptions: AtorvaSTATin [Lipitor] 40 mg PO QHS #30 tablet Spironolactone [Aldactone] 25 mg PO QDAY #30 tablet Aspirin EC 325 mg PO QDAY #30 tablet ISOSORBIDE MONOnitrate [Imdur ER] 30 mg PO QDAY #30 tablet Metoprolol [Lopressor TAB] 50 mg PO BID #60 tablet amLODIPine [Norvasc] 5 mg PO QDAY #30 tablet Clopidogrel [Plavix] 75 mg PO QDAY #30 tablet Lisinopril [Zestril TAB] 5 mg PO QDAY #30 tablet
--- NOTE | 2019-02-07 12:53 | Progress Note ---
Assessment and Plan - Patient Problems (1) STEMI (ST elevation myocardial infarction) Current Visit: Yes Status: Acute Plan to address problem: Status post successful primary angioplasty and stenting of the LAD and diagonal. Echocardiogram will be ordered for left ventricular function and valvular function assessment. Subjective Date of service: 02/07/19 Principal diagnosis: STEMI Interval history: Patient is comfortable, no new cardiac complaints. Echocardiogram is pending for left ventricular function assessment. Objective Vital Signs Temp Pulse Pulse Resp BP Pulse Ox 02/07/19 08:21 98.0 F 77 16 126/73 96 02/07/19 05:28 70 02/07/19 04:26 97.9 F 70 18 120/70 94 02/06/19 23:55 98.3 F 73 18 115/67 95 02/06/19 22:04 68 129/69 02/06/19 19:29 98.1 F 68 18 129/69 93 02/06/19 18:39 75 142/74 96 02/06/19 18:00 144/88 94 02/06/19 17:30 67 33 H 130/73 97 02/06/19 17:00 70 65 21 129/70 95 02/06/19 16:30 64 27 H 139/80 96 02/06/19 16:00 97.6 F 64 25 H 135/76 98 02/06/19 15:30 71 21 144/83 96 02/06/19 15:00 67 18 140/81 94 02/06/19 14:30 58 L 16 127/65 98 02/06/19 14:00 56 L 17 129/62 97 02/06/19 13:30 60 21 112/62 93 02/06/19 13:00 61 63 23 134/66 93 - Physical Examination General: No Apparent Distress HEENT: Positive: PERRL Neck: Positive: neck supple Cardiac: Positive: Reg Rate and Rhythm Lungs: Positive: Decreased Breath Sounds Neuro: Positive: Grossly Intact Abdomen: Positive: Soft Skin: Positive: Clear Extremities: Absent: edema - Labs and Meds CBC 02/07/19 Range/Units 04:39 WBC 10.3 (4.5-11.0) K/mm3 RBC 3.80 (3.65-5.03) M/mm3 Hgb 11.5 L (11.8-15.2) gm/dl Hct 33.7 L (35.5-45.6) % Plt Count 122 L (140-440) K/mm3 Comprehensive Metabolic Panel 02/07/19 02/07/19 Range/Units 04:38 08:05 Sodium TNR 138 Potassium TNR 4.0 Chloride TNR 102.0 Carbon Dioxide TNR 25 BUN TNR 16 Creatinine TNR 0.8 Glucose TNR 124 H Calcium TNR 7.9 L
--- NOTE | 2019-02-07 16:00 | Progress Note ---
Assessment and Plan 78 y/o male with STEMI, status post PCI 1. Stable pulm status. Will sign off. Subjective Date of service: 02/07/19 Principal diagnosis: STEMI Interval history: No acute events. Successful transfer out of unit. Objective - Constitutional Vitals: Vital Signs - 12hr 02/07/19 02/07/19 02/07/19 04:26 05:28 08:21 Temperature 97.9 F 98.0 F Pulse Rate 70 70 77 Respiratory 18 16 Rate Blood Pressure 120/70 126/73 O2 Sat by Pulse 94 96 Oximetry 02/07/19 12:21 Temperature 98.7 F Pulse Rate 78 Respiratory 16 Rate Blood Pressure 102/63 O2 Sat by Pulse 96 Oximetry - Labs CBC & Chem 7: 02/07/19 04:39 02/07/19 08:05 Labs: Abnormal lab results 02/07/19 02/07/19 Range/Units 04:39 08:05 Hgb 11.5 L (11.8-15.2) gm/dl Hct 33.7 L (35.5-45.6) % Plt Count 122 L (140-440) K/mm3 Glucose 124 H (75-100) mg/dL Calcium 7.9 L (8.4-10.2) mg/dL Medications & Allergies - Medications Allergies/Adverse Reactions: Allergies No Known Allergies Allergy (Verified 02/05/19 12:49) Home Medications: Home Medications Medication Instructions Recorded Confirmed Last Taken Type Aspirin EC 325 mg PO QDAY #30 tablet 02/07/19 Unknown Rx AtorvaSTATin [Lipitor] 40 mg PO QHS #30 tablet 02/07/19 Unknown Rx Clopidogrel [Plavix] 75 mg PO QDAY #30 tablet 02/07/19 Unknown Rx ISOSORBIDE MONOnitrate [Imdur ER] 30 mg PO QDAY #30 tablet 02/07/19 Unknown Rx Lisinopril [Zestril TAB] 5 mg PO QDAY #30 tablet 02/07/19 Unknown Rx Metoprolol [Lopressor TAB] 50 mg PO BID #60 tablet 02/07/19 Unknown Rx Spironolactone [Aldactone] 25 mg PO QDAY #30 tablet 02/07/19 Unknown Rx amLODIPine [Norvasc] 5 mg PO QDAY #30 tablet 02/07/19 Unknown Rx Active Medications: Generic Name Dose Route Start Last Admin Trade Name Freq PRN Reason Stop Dose Admin Amlodipine Besylate 5 mg 02/06/19 10:00 02/07/19 10:09 Norvasc PO 5 mg QDAY [facility] Administration Aspirin 325 mg 02/06/19 10:00 02/07/19 10:09 Ecotrin PO 325 mg QDAY [facility] Administration Atorvastatin Calcium 40 mg 02/05/19 22:00 02/06/19 22:04 Lipitor PO 40 mg QHS [facility] Administration Clopidogrel Bisulfate 75 mg 02/06/19 10:00 02/07/19 10:09 Plavix PO 75 mg QDAY [facility] Administration Isosorbide Mononitrate 30 mg 02/06/19 11:00 02/07/19 10:10 Imdur PO 30 mg QDAY [facility] Administration Lisinopril 5 mg 02/05/19 15:00 02/07/19 10:09 Zestril PO 5 mg QDAY [facility] Administration Metoprolol Tartrate 50 mg 02/05/19 15:00 02/07/19 10:09 Lopressor PO 50 mg BID [facility] Administration Spironolactone 25 mg 02/06/19 11:00 02/07/19 10:09 Aldactone PO 25 mg QDAY [facility] Administration
[2019-02-07 18:03] VITALS: BP 92/52
== END 2019-02-07 20:35 | disposition home or self-care (01) | DRG 246 ==
LOC: ED 12:36 → CC1 13:42 → 4A 02-06 18:34
PROVIDERS: ADMIT Internal Medicine; ATTEND Internal Medicine
PROC: 027135Z Dilation of Coronary Artery, Two Arteries with Two Drug-eluting Intraluminal Devices, Percutaneous Approach (ICD-10-PCS; principal; 2019-02-05)
PROC: 4A023N7 Measurement of Cardiac Sampling and Pressure, Left Heart, Percutaneous Approach (ICD-10-PCS; 2019-02-05)
PROC: B2111ZZ Fluoroscopy of Multiple Coronary Arteries using Low Osmolar Contrast (ICD-10-PCS; 2019-02-05)
DX: I21.09 ST elevation (STEMI) myocardial infarction involving other coronary artery of anterior wall (principal); I50.41 Acute combined systolic (congestive) and diastolic (congestive) heart failure; J98.11 Atelectasis; I21.29 ST elevation (STEMI) myocardial infarction involving other sites; E78.5 Hyperlipidemia, unspecified; R73.9 Hyperglycemia, unspecified; D72.829 Elevated white blood cell count, unspecified; I10 Essential (primary) hypertension
CPT/HCPCS: 36415; 71045; 80048; 80061; 82550; 82553; 82962; 83036; 84484; 85014; 85018; 85025; 85027; 85347; 85610; 85730; 87040; 92941; 93005; 93010; 93306; 93454; G0378; A9270-GY; C1725; C1760; C1769; C1874; C1887; C1894; C9606; J0456; J0696; J1644; J2250; J2270; J3010; J3246; J7040; J7050; Q9967